=== PATIENT | male | born 1960 | race Caucasian/White ===

== ENCOUNTER 2020-03-23 18:40 | Emergency (ER) | payer SELFPAY ==
[2020-03-23] MEDS ORDERED: NITROGLYCERIN 0.4 MG 25 EA TAB SL ONE (18:47)
[2020-03-23] MEDS ORDERED: HEPARIN SODIUM (PORCINE) 5,000 U/ML VIAL IV ONE (18:47)
[2020-03-23] MEDS ORDERED: ALTEPLASE 100 MG ONE (18:54)
--- NOTE | 2020-03-23 19:04 | ED.PDOC ---
History of Present Illness - General Chief Complaint: Chest Pain/IL Time Seen by Provider: 03/23/20 18:46 - History of Present Illness Initial Comments: 59 yo male noncompliant diabetic comes in with one week of on and off chest pain. States he has no known, but father had IL. Pain is substernal and radiates to left arm and elbow. a/e with shortness of breath, nausea. no fever, cough. Allergies/Adverse Reactions: Allergies NO KNOWN ALLERGY Allergy (Verified 03/23/20 18:46) Review of Systems - Review of Systems Constitutional: Denies: chills, diaphoresis, fever, malaise EENTM: Denies: eye pain, blurred vision Respiratory: States: short of breath. Denies: cough, orthopnea, stridor Cardiology: States: chest pain. Denies: edema, palpitations, syncope Gastrointestinal/Abdominal: Denies: abdominal pain, constipation, diarrhea, nausea, vomiting Genitourinary: Denies: dysuria, frequency, hematuria Musculoskeletal: Denies: back pain, joint pain, joint swelling, muscle pain, muscle stiffness Skin: Denies: change in color, change in hair/nails, dryness, lesions Neurological: Denies: headache, numbness, paresthesia, pre-existing deficit, seizure, tingling, tremors, weakness Endocrine: Denies: excessive sweating, unexplained weight gain, unexplained weight loss Hematologic/Lymphatic: Denies: anemia, blood clots, easy bleeding, easy bruising Past Medical History (General) - Patient Medical History Hx Diabetes: Yes Family Medical History - Family History Mother Family History: No Known Physical Exam - Physical Exam General Appearance: Alert, Comfortable, No apparent distress Eyes, Ears, Nose, Throat Exam: PERRL/EOMI, normal ENT inspection Neck: non-tender, full range of motion, supple, normal inspection Respiratory: chest non-tender, lungs clear, normal breath sounds, no respiratory distress, no accessory muscle use Cardiovascular/Chest: normal peripheral pulses, regular rate, rhythm, no edema, no gallop, no JVD, no murmur Peripheral Pulses: radial,right: 2+, radial,left: 2+, dorsalis pedis,right: 2+, dorsalis pedis,left: 2+ Gastrointestinal/Abdominal: normal bowel sounds, non tender, soft, no organomegaly, no pulsatile mass Rectal Exam: deferred Extremity: normal range of motion, non-tender, normal inspection, no pedal edema, no calf tenderness, normal capillary refill 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 Bellamy cardiology plan on giving patient tpa and flying to [place]. Currently no contraindications, will get bp down with nitroglycerin. Pending ptt/pt levels. Discussed risk and benefits. consent signed. VSS. The data reviewed when caring for this patient included: nurse notes etc. The history and assessments from nurses notes were reviewed and considered, and the patient's home medication list was also reviewed and considered. My assessment and the results of testing completed here in the ED were discussed with the patient/family. I have reviewed medication, benefits, alternative and side effects. Patient decided to proceed with medication. Departure - Departure Clinical Impression: STEMI (ST elevation myocardial infarction) Qualifiers: Involved coronary artery: other coronary artery Qualified Code(s): I21.29 - ST elevation (STEMI) myocardial infarction involving other sites Disposition: Transfer to Hospital Condition: Fair Departure Forms: ED Discharge - Pt. 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
--- NOTE | 2020-03-23 19:07 | RAD ---
EXAM: XR Chest, 1 View CLINICAL HISTORY: The patient is 59 years old and is Male; chest pain TECHNIQUE: Single upright portable view of the chest. COMPARISON: No relevant prior studies available. FINDINGS: Lungs: Unremarkable. No consolidation. Pleural space: Unremarkable. No pneumothorax. Heart: The cardiac silhouette is enlarged versus artifact of AP technique. Mediastinum: Unremarkable. Bones/joints: No acute rib fracture identified. Upper abdomen: No free air in the visualized upper abdomen. IMPRESSION: No acute cardiopulmonary process identified. Electronically signed by: Beatrice Lobo MD 03/23/2020 7:06 PM CDT
[2020-03-23] MEDS ORDERED: ALTEPLASE 50 MG IVS ONE (19:30)
[2020-03-23] MEDS ORDERED: NITROGLYCERIN/D5W IV 50,000 MCG in PREMIX BOTTLE 1 BOTTLE IVS SCH (19:30)
[2020-03-23 20:41] VITALS: TEMP 96.7; O2SAT 97
[2020-03-23 20:53] VITALS: BP 161/104
== END 2020-03-23 19:43 | disposition short-term general hospital (02) ==
LOC: ER 18:40
DX: I21.3 ST elevation (STEMI) myocardial infarction of unspecified site (principal); E11.9 Type 2 diabetes mellitus without complications
CPT/HCPCS: 71045; 80053; 83880; 84484; 85025; 85610; 85730; 93005; J2997

== ENCOUNTER → 2020-04-12 | Outpatient (CLI) | payer SELFPAY | LOC: GMA CAST 13:17 | PROVIDERS: ATTEND Family Medicine Sports Medicine | DX: R53.83 Other fatigue (principal); E11.9 Type 2 diabetes mellitus without complications; I10 Essential (primary) hypertension; I50.9 Heart failure, unspecified ==

== ENCOUNTER → 2020-05-20 | Outpatient (CLI) | payer MEDICARE | LOC: NC 15:23 | PROVIDERS: ATTEND Family Medicine Sports Medicine | DX: R30.0 Dysuria (principal) ==

== ENCOUNTER → 2020-06-14 | Outpatient (CLI) | payer MEDICARE | LOC: GMA CAST 13:11 | PROVIDERS: ATTEND Family Medicine Sports Medicine | DX: N41.1 Chronic prostatitis (principal) ==